=== PATIENT | female | born 1980 | race Caucasian/White ===

== ENCOUNTER 2017-03-09 10:25 | Emergency (ER) | payer MEDICAID ==
[~2017-03-09] VITALS: Ht 154.9 cm; Wt 73.5 kg
[2017-03-09 10:37] VITALS: BP 137/85
--- NOTE | 2017-03-09 11:43 | NUR ---
Patient ambulated to bed 09.
--- NOTE | 2017-03-09 11:45 | NUR ---
36/F BIB FRIEND C/O LEFT ARM TINGLING 1HR [employer]. PT STS FELT DAZED WITH L ARM STIFFENING WITH WEAKNESS IN LEGS X COUPLE MINUTES. BILAT KNEE WEAKNESS REMAINS. -HX ASTHMA -AX DENIES; DENIES N/V/D; SKIN IS PINK/WARM/DRY; AAOX4 WITH EVEN AND STEADY GAIT; LUNGS CLEAR BL; HR EVEN AND REGULAR; PT DENIES ANY FEVER, CP, SOB, OR COUGH AT THIS TIME; PATIENT STATES PAIN OF 0/10 AT THIS TIME; VSS; PATIENT POSITIONED FOR COMFORT; HOB ELEVATED; BEDRAILS UP X2; BED DOWN. ER MD MADE AWARE OF PT STATUS.
--- NOTE | 2017-03-09 12:16 | NUR ---
Dr. Tran evaluating patient at bedside.
[2017-03-09 12:27] VITALS: BP 133/81
--- NOTE | 2017-03-09 12:27 | NUR ---
Patient discharged with v/s stable. Written and verbal after care instructions given and explained. Patient alert, oriented and verbalized understanding of instructions. Ambulatory with steady gait. All questions addressed prior to discharge. ID band removed. Patient advised to follow up with PMD. Rx of MOTRIN 800MG/TAB given. Patient educated on indication of medication including possible reaction and side effects. Opportunity to ask questions provided and answered.
== END 2017-03-09 12:27 | disposition home or self-care (01) ==
LOC: MED 10:25
DX: R20.2 Paresthesia of skin (principal); M79.89 Other specified soft tissue disorders; J45.909 Unspecified asthma, uncomplicated; Z90.710 Acquired absence of both cervix and uterus
CPT/HCPCS: 81002; 81025; 99283